=== PATIENT | female | born 1970 | race Caucasian/White ===

== ENCOUNTER → 2021-06-12 | Outpatient (CLI) | payer OTHER ==
[2021-06-12 10:33] LABS: RED BLOOD COUNT 4.6 M/UL (4.00-5.10); WHITE BLOOD COUNT 6.4 K/UL (4.5-11.0)
[2021-06-12 11:08] LABS: BUN/CREATININE RATIO 13 (0-10)
[2021-06-13 08:14] LABS: VITAMIN D, 25-HYDROXY 14.5 ng/mL (30.0-100.0)
== END ==
LOC: LAB 09:46
PROVIDERS: Nurse Practitioner Family
DX: M25.50 Pain in unspecified joint (principal); R76.8 Other specified abnormal immunological findings in serum; D89.9 Disorder involving the immune mechanism, unspecified; E55.9 Vitamin D deficiency, unspecified
CPT/HCPCS: 36415; 80053; 85025; 85652; 86140; 86160; 86200